=== PATIENT | female | born 1980 | race Caucasian/White ===

== ENCOUNTER → 2016-03-21 | Outpatient (CLI) | payer OTHER ==
[~2016-03-21] MED LIST: ONDA4TAB10 SL; PRENTAB26 PO
[2016-03-21 13:30] LABS: BASO % 0.4 %; BASO ABS # 0.03 K/uL (0-0.2); COMPLETE YES; EOS % 0.9 %; HEMATOCRIT 40.3 % (37-47); IG% 0.6 %; LYMPH % 19.1 %; LYMPH ABS # 1.62 K/uL (1.2-3.4); MEAN CORPUSCULAR HEMOGLOBIN 31.3 pg (25-34); MEAN CORPUSCULAR HGB CONC 34.7 g/dl (32-36); MEAN PLATELET VOLUME 10.7 fL (7.4-10.4); MONO % 6.7 %; NEUT % 72.3 %; PLATELET COUNT 265 K/uL (130-400); RED BLOOD COUNT 4.48 M/uL (4.2-5.4)
[2016-03-21 14:26] LABS: GTGD 50 Grams
== END | disposition home or self-care (01) ==
LOC: C.LAB 11:26
PROVIDERS: ATTEND Obstetrics & Gynecology
DX: Z34.81 Encounter for supervision of other normal pregnancy, first trimester (principal)

== ENCOUNTER 2016-04-16 08:45 | Emergency (ER) | payer OTHER ==
[~2016-04-16] VITALS: Ht 165.1 cm; Wt 65.6 kg
[2016-04-16 08:48] VITALS: TEMP 36.5; Ht 165.1 cm; Wt 65.6 kg
[2016-04-16] MEDS ORDERED: PRENTAB26 PO (09:07)
[2016-04-16] MEDS ORDERED: SODIUM CHLORIDE 0.9% 1000ML 1,000 ML IV STA (09:12)
[2016-04-16] MEDS ORDERED: ONDANSETRON INJ 2 MG/ML 2 ML VIAL IV STA (09:12)
--- NOTE | 2016-04-16 09:21 | EMERGENCY ROOM VISIT NOTE ---
History Report prepared by Scribe: Rajinder Hernandez Under the Supervision of: Dr. Tara Beck M.D. First contact with patient: 09:07 Chief Complaint: DIZZY Stated Complaint: LIGHTHEADED, DIZZY, V, FLU SYMPTOMS-21 WKS. PREG. Nursing Triage Summary: C/O of dizziness this AM. Feels like shes had a cold the past few days, right ear hurts and thought it was turning into a sinus infection. "My equilibrium is just off." 21 weeks . Healthy . History of Present Illness The patient is a 35 year old female who presents to the Emergency Room with complaints of recurrent dizziness since she woke up this morning. The patient has had nasal congestion and cold symptoms for the past four days, however her cough has resolved. She started to experience nausea & vomiting and also right ear pain yesterday. The patient has been unable to keep fluids down secondary to vomiting. The patient denies any fevers, headaches, chest pain, shortness of breath, diarrhea, urinary symptoms, vaginal discharge, or leg pain. The patient is 21 weeks . She can feel the fetus's movement. The patient has other children at home. Her daughter had cold symptoms similar to the patient's. Source of History: patient Onset: this morning Position: other (global) Quality: other (dizziness) Timing: other (recurrent) Associated Symptoms: + cough, + nausea, + vomiting, No SOB, No chest pain, No diarrhea, No fevers, No headache, No urinary symptoms Review of Systems See HPI for pertinent positives & negatives. A total of 10 systems reviewed and were otherwise negative. Past Medical & Surgical Medical Problems: (1) Allergic reaction (2) Tonsillitis Surgical Problems: (1) Hx of section Family History Cancer Diabetes mellitus Heart disease Hypertension Kidney disease Kidney stones Social History Smoking Status: Never Smoker Alcohol Use: none Marital Status: single Housing Status: lives with family Occupation Status: employed Current/Historical Medications Scheduled Multivit/Min/Iron/Fol Ac/Pren ( Vitamin), 1 TAB PO DAILY Ondasetron Odt (Zofran Odt), 4 MG SL Q6H Allergies Coded Allergies: Codeine (Verified Allergy, Mild, Facial itching., 04/16/16) Physical Exam Vital Signs Date Time Temp Pulse Resp B/P Pulse Ox O2 Delivery O2 Flow Rate FiO2 04/16/16 13:29 76 17 122/75 97 04/16/16 12:02 79 15 115/76 97 Room Air 04/16/16 11:21 80 18 121/77 98 04/16/16 09:45 72 114/82 04/16/16 09:42 78 20 115/74 93 118/77 95 114/82 04/16/16 08:58 87 04/16/16 08:48 36.5 99 18 117/66 96 Room Air Physical Exam Vital signs reviewed. General: Well-appearing female, in no significant distress. HEENT: No scleral icterus, PERRLA, neck supple. Atraumatic. Cardiovascular: Regular rate and rhythm, no extra sounds. Pulmonary: Clear to auscultation bilaterally, normal work of breathing. Abdomen: Soft, nontender, nondistended, positive bowel sounds. Palpable uterus in the mid abdomen. Musculoskeletal: Atraumatic, no peripheral edema. Neurologic: Patient awake alert and oriented x 3, full strength in all 4 extremities. Cranial nerves 2 through 12 grossly intact. Skin: Warm, dry, no rash Medical Decision & Procedures Laboratory Results 04/16/16 08:55 Red Blood Count 4.66, Mean Corpuscular Volume 90.3, Mean Corpuscular Hemoglobin 30.7, Mean Corpuscular Hemoglobin Concent 34.0, Mean Platelet Volume 10.5, Neutrophils (%) (Auto) 62.7, Lymphocytes (%) (Auto) 28.3, Monocytes (%) (Auto) 6.6, Eosinophils (%) (Auto) 1.3, Basophils (%) (Auto) 0.3, Neutrophils # (Auto) 6.21, Lymphocytes # (Auto) 2.80, Monocytes # (Auto) 0.65, Eosinophils # (Auto) 0.13, Basophils # (Auto) 0.03 04/16/16 08:55 Test 04/16/16 08:55 04/16/16 10:28 White Blood Count 9.90 K/uL (4.8-10.8) Red Blood Count 4.66 M/uL (4.2-5.4) Hemoglobin 14.3 g/dL (12.0-16.0) Hematocrit 42.1 % (37-47) Mean Corpuscular Volume 90.3 fL (80-100) Mean Corpuscular Hemoglobin 30.7 pg (25-34) Mean Corpuscular Hemoglobin Concent 34.0 g/dl (32-36) Platelet Count 268 K/uL (130-400) Mean Platelet Volume 10.5 fL (7.4-10.4) Neutrophils (%) (Auto) 62.7 % Lymphocytes (%) (Auto) 28.3 % Monocytes (%) (Auto) 6.6 % Eosinophils (%) (Auto) 1.3 % Basophils (%) (Auto) 0.3 % Neutrophils # (Auto) 6.21 K/uL (1.4-6.5) Lymphocytes # (Auto) 2.80 K/uL (1.2-3.4) Monocytes # (Auto) 0.65 K/uL (0.11-0.59) Eosinophils # (Auto) 0.13 K/uL (0-0.5) Basophils # (Auto) 0.03 K/uL (0-0.2) RDW Standard Deviation 46.9 fL (36.4-46.3) RDW Coefficient of Variation 14.4 % (11.5-14.5) Immature Granulocyte % (Auto) 0.8 % Immature Granulocyte # (Auto) 0.08 K/uL (0.00-0.02) Prothrombin Time 9.7 SECONDS (9.0-12.0) Prothromb Time International Ratio 0.9 (0.9-1.1) Anion Gap 12.0 mmol/L (3-11) Est Creatinine Clear Calc Drug Dose 78.8 ml/min Estimated GFR () 97.3 Estimated GFR (Non- 83.9 BUN/Creatinine Ratio 12.2 (10-20) Calcium Level 8.4 mg/dl (8.5-10.1) Magnesium Level 1.9 mg/dl (1.8-2.4) Total Bilirubin 0.2 mg/dl (0.2-1) Direct Bilirubin < 0.1 mg/dl (0-0.2) Aspartate Amino Transf (AST/SGOT) 21 U/L (15-37) Alanine Aminotransferase (ALT/SGPT) 24 U/L (12-78) Alkaline Phosphatase 59 U/L (45-117) Total Protein 7.3 gm/dl (6.4-8.2) Albumin 3.1 gm/dl (3.4-5.0) Urine Color YELLOW Urine Appearance CLEAR (CLEAR) Urine pH 7.0 (4.5-7.5) Urine Specific [place] 1.017 (1.000-1.030) Urine Protein NEG (NEG) Urine Glucose (UA) NEG (NEG) Urine Ketones NEG (NEG) Urine Occult Blood NEG (NEG) Urine Nitrite NEG (NEG) Urine Bilirubin NEG (NEG) Urine Urobilinogen NEG (NEG) Urine Leukocyte Esterase NEG (NEG) Laboratory results per my review. Medications Administered Medications (Trade) Dose Ordered Sig/Hoda Route Start Time Stop Time Status Last Admin Dose Admin Sodium Chloride (Nss 1000ml) 1,000 ml @ 999 mls/hr Q1H1M STAT IV 04/16/16 09:12 04/16/16 13:45 DC 04/16/16 09:45 999 MLS/HR Ondansetron HCl (Zofran Inj) 4 mg NOW STAT IV 04/16/16 09:12 04/16/16 09:15 DC 04/16/16 09:46 4 MG Ondansetron HCl (ZOFRAN ODT 4MG Home Pack) 1 homepack UD ONCE PO 04/16/16 13:30 04/16/16 13:45 DC 04/16/16 13:28 1 HOMEPACK ED Course 0912: Past medical records reviewed. The patient was evaluated in room B7. A complete history and physical examination was performed. 0912: Zofran 4 mg IV, NSS 1000 ml @ 999 mls/hr. 1320: Reassessed the patient. Discussed the findings with her. She verbalized understanding and agreement of the treatment plan. The patient is ready for discharge. 1330: Zofran Odt 4 mg PO home pack. Medical Decision Etiologies such as gastroenteritis, food borne illness, infections, appendicitis , diverticulitis, inflammatory bowel disease, obstruction, GI bleed, biliary pathology, , dehydration, as well as others were entertained. This patient was evaluated and appeared to be in no significant distress. IV access was obtained and laboratory work was drawn. Patient was hydrated with normal saline solution. Laboratory work is fairly unrevealing. Patient's vital signs have remained stable. She was feeling much improved after IV hydration and IV Zofran. Ultrasound reveals an intrauterine . Patient felt comfortable with the plan for discharge and was asked to follow-up with her DECK ENGINEER this week. She will return to the ER for worsening of symptoms or any medical concerns. Impression Primary Impression: Vomiting Additional Impressions: Near syncope Scribe Attestation The scribe's documentation has been prepared under my direction and personally reviewed by me in its entirety. I confirm that the note above accurately reflects all work, treatment, procedures, and medical decision making performed by me. Departure Information Dispostion Home / Self-Care Prescriptions Ondasetron Odt (ZOFRAN ODT) 4 Mg Tab 4 MG SL Q6H for Nausea, #10 TAB Prov: Tara Beck M.D. 04/16/16 Referrals Doe Cummings M.D. (PCP) Forms HOME CARE DOCUMENTATION FORM, IMPORTANT VISIT INFORMATION, Work Instructions Patient Instructions My [facility] Additional Instructions Diagnosis: Vomiting, , near syncope Drink plenty of clear fluids. Zofran 4 mg ODT every 6 hours as needed for nausea. Follow-up with your DECK ENGINEER this week for reevaluation if symptoms persist. Return to the ER for worsening of symptoms or any medical concerns. Problem Qualifiers Primary Impression: Vomiting Vomiting type: unspecified Vomiting Intractability: non-intractable Nausea presence: with nausea Qualified Codes: R11.2 - Nausea with vomiting, unspecified Additional Impressions: Weeks of gestation: 21 weeks Qualified Codes: Z3A.21 - 21 weeks gestation of
[2016-04-16 09:39] LABS: BASO % 0.3 %; BASO ABS # 0.03 K/uL (0-0.2); COMPLETE YES; EOS % 1.3 %; HEMATOCRIT 42.1 % (37-47); IG% 0.8 %; LYMPH % 28.3 %; MEAN CELL VOLUME 90.3 fL (80-100); MEAN CORPUSCULAR HEMOGLOBIN 30.7 pg (25-34); MEAN PLATELET VOLUME 10.5 fL (7.4-10.4); MONO % 6.6 %; NEUT % 62.7 %; PLATELET COUNT 268 K/uL (130-400); RED BLOOD COUNT 4.66 M/uL (4.2-5.4)
[2016-04-16 09:49] LABS: ALKALINE PHOSPHATASE 59 U/L (45-117); ALT/SGPT 24 U/L (12-78); AST/SGOT 21 U/L (15-37)
[2016-04-16 09:52] LABS: INR 0.9 (0.9-1.1); PROTHROMBIN TIME (PATIENT) 9.7 SECONDS (9.0-12.0)
[2016-04-16 10:24] LABS: BUN/CREATININE RATIO 12.2 (10-20); CALCIUM 8.4 mg/dl (8.5-10.1); CREATININE 0.88 mg/dl (0.60-1.20); MAGNESIUM 1.9 mg/dl (1.8-2.4)
[2016-04-16 10:48] LABS: URINE APPEARANCE CLEAR (CLEAR); URINE BILIRUBIN NEG (NEG); URINE COLOR YELLOW; URINE NITRITE NEG (NEG); URINE SPECIFIC GRAVITY 1.017 (1.000-1.030); UROBILINOGEN NEG (NEG); ZZUR CULT IF INDIC CLEAN CATCH NO
[2016-04-16 10:51] LABS: MANUAL MICROSCOPIC REQUIRED? NO; REVIEW REQ? NO
[2016-04-16] MEDS ORDERED: ONDA4TAB10 SL (13:17)
[2016-04-16 13:29] VITALS: BP 122/75; PULSE 76; O2SAT 97
[2016-04-16] MEDS ORDERED: ONDANSETRON HOME PACK 4MG OD TAB PO ONE (13:30)
== END 2016-04-16 13:29 | disposition home or self-care (01) ==
LOC: C.EDB 08:47
DX: O26.92 Pregnancy related conditions, unspecified, second trimester (principal); Z3A.21 21 weeks gestation of pregnancy; R55 Syncope and collapse; R11.10 Vomiting, unspecified; Z88.5 Allergy status to narcotic agent; Z80.9 Family history of malignant neoplasm, unspecified; Z83.3 Family history of diabetes mellitus; Z82.49 Family history of ischemic heart disease and other diseases of the circulatory system; Z84.1 Family history of disorders of kidney and ureter

== ENCOUNTER → 2016-06-12 | Outpatient (CLI) | payer OTHER ==
[2016-06-13 15:10] LABS: URINE APPEARANCE CLEAR (CLEAR); URINE BILIRUBIN NEG (NEG); URINE COLOR YELLOW; URINE NITRITE NEG (NEG); URINE PH 8.5 (4.5-7.5); URINE SPECIFIC GRAVITY 1.013 (1.000-1.030); UROBILINOGEN NEG (NEG)
[2016-06-13 15:18] LABS: MANUAL MICROSCOPIC REQUIRED? NO; REVIEW REQ? NO
== END | disposition home or self-care (01) ==
LOC: C.LABSPEC 14:55
PROVIDERS: ATTEND Obstetrics & Gynecology
DX: O26.893 Other specified pregnancy related conditions, third trimester (principal); R30.0 Dysuria

== ENCOUNTER → 2016-07-31 | Outpatient (CLI) | payer OTHER | END | disposition home or self-care (01) | LOC: C.LABSPEC 15:13 | PROVIDERS: ATTEND Obstetrics & Gynecology | DX: Z34.83 Encounter for supervision of other normal pregnancy, third trimester (principal) ==

== ENCOUNTER 2016-08-20 06:52 | Inpatient (IN) | payer OTHER ==
--- NOTE | 2016-08-07 19:55 | HISTORY & PHYSICAL EXAMINATION ---
DATE OF ADMISSION: 08/20/2016 CHIEF COMPLAINT: Two previous sections, intrauterine at 39 weeks gestation. HISTORY OF PRESENT ILLNESS: The patient is a 36-year-old 4, para 2. She has had 1 first trimester AB. She has had 2 previous sections. She was well dated with a first trimester ultrasound. Her due date 08/27/2016. Her obstetrical history is as follows: In 1999 she had a male, 7 pounds 13 ounces, at 40 weeks gestation after arrest of labor at 6 cm. She was told at that time the was in OP position. She attempted in 2009 and had another , a female of 6 pounds 13 ounces, another arrest at 6 cm position. Presently being scheduled for a repeat low segment section. The patient did not have any genetic testing. PAST MEDICAL HISTORY: ALLERGIES: SHE IS ALLERGIC TO CODEINE WHICH CAUSES SWELLING. She has a boy and girl in good health. MEDICAL HISTORY: No history of rheumatic fever, heart disease, heart murmur, diabetes, tuberculosis. PAST SURGICAL HISTORY: She has had 2 previous C-sections. SOCIAL HISTORY: No smoking. No alcohol intake. Works at [employer]. FAMILY HISTORY: Mom is 55 in good health, father 58 in good health, 1 brother and 2 half sisters in good health. REVIEW OF SYSTEMS: HEAD: No symptoms of frequent or severe headaches. EYES: No symptoms of blurred vision, double vision. EARS: No symptoms of frequent ear infections, difficulty hearing. NOSE: No symptoms of frequent nosebleeds, difficulty breathing through her nose. THROAT: No symptoms of frequent or severe sore throats, difficulty swallowing. RESPIRATORY SYSTEM: No history of asthma, chest pain, shortness of breath. PHYSICAL EXAMINATION: GENERAL: Well-developed, well-nourished 36-year-old white female, alert, oriented x3 and cooperative in no acute distress, appears her stated age. EYES: Conjunctivae are pink. Sclerae white, no evidence of jaundice. EARS: Had normal light reflex bilaterally. NOSE: Had normal mucosa. Septum is midline. There were no polyps. THROAT: No erythema or evidence of infection. Teeth are in good state of repair. HEAD: Was normocephalic, normal distribution of hair. NECK: Supple. Trachea midline. Thyroid is not enlarged. There is no adenopathy appreciated. Both carotids are of good intensity. CHEST: Clear to auscultation and percussion. no rales or rhonchi appreciated. HEART: Regular rhythm. S1 and S2 are normal. BREASTS: Normal. ABDOMEN: Soft and nontender. There is a well-healed Pfannenstiel scar. Term size fetus, vertex presentation. MUSCULOSKELETAL: Revealed no calf tenderness. PELVIC: Vertex presentation. Cervix posterior 1 cm. MUSCULOSKELETAL: No calf tenderness. IMPRESSIONS OF THIS CASE: Two prior sections and intrauterine , 39 weeks gestation. MTDD
[2016-08-14 12:54] VITALS: BMI 28.0
--- NOTE | 2016-08-14 13:11 | PAT Medication Instructions ---
Service Date August 14, 2016. Current Home Medication List Multivit/Min/Iron/Fol Ac/Pren ( Vitamin), 1 TAB PO DAILY Medication Instructions For Your Scheduled Surgery - Hold the following medications the morning of surgery: Multivit/Min/Iron/Fol Ac/Pren ( Vitamin), 1 TAB PO DAILY If you have any questions please call us at [phone] or [phone] or [phone]
[2016-08-14 13:54] LABS: BUN/CREATININE RATIO 10.1 (10-20); CREATININE 0.85 mg/dl (0.60-1.20); POTASSIUM 3.7 mmol/L (3.5-5.1)
[2016-08-14 13:59] LABS: BASO % 0.4 %; BASO ABS # 0.04 K/uL (0-0.2); COMPLETE YES; HEMATOCRIT 34.4 % (37-47); IG% 1.2 %; LYMPH % 20.8 %; LYMPH ABS # 1.96 K/uL (1.2-3.4); MEAN CELL VOLUME 89.1 fL (80-100); MEAN CORPUSCULAR HEMOGLOBIN 30.8 pg (25-34); MEAN CORPUSCULAR HGB CONC 34.6 g/dl (32-36); MEAN PLATELET VOLUME 10.6 fL (7.4-10.4); MONO % 7.6 %; PLATELET COUNT 240 K/uL (130-400); RED BLOOD COUNT 3.86 M/uL (4.2-5.4); WHITE BLOOD COUNT 9.42 K/uL (4.8-10.8)
[2016-08-14 14:07] LABS: INR 0.9 (0.9-1.1); PARTIAL THROMBOPLASTIN RATIO 0.9; PROTHROMBIN TIME (PATIENT) 9.7 SECONDS (9.0-12.0)
[2016-08-20] VITALS (13 sets, daily range): BP systolic 105–128; BP diastolic 60–78; PULSE 75–84; TEMP 36.3–36.8; O2SAT 18–99; Ht 165.1 cm; Wt 76.5 kg
[~2016-08-20] VITALS: Ht 165.1 cm; Wt 76.5 kg
[~2016-08-20 06:52] MED LIST changes: +CEFOXITIN IV 2000 MG in DEXTROSE 5% 50ML IV SCH; +CITRIC ACID/SODIUM CITRATE 15 ML UDC PO SCH; +LACTATED RINGER'S 1000ML 1,000 ML IV SCH; -ONDA4TAB10 SL
[2016-08-20] MEDS ORDERED: LACTATED RINGER'S 1000ML 1,000 ML IV SCH (08:27)
[2016-08-20] MEDS ORDERED: CITRIC ACID/SODIUM CITRATE 15 ML UDC PO ONE (08:30)
--- NOTE | 2016-08-20 08:48 | History & Physical Bridge Note ---
H&P Re-Evaluation Bridge Note: I have examined the patient, reviewed the History & Physical and in the interval since the performance of the History & Physical I have noted the following changes of clinical significance: No changes noted
[2016-08-20] MEDS ORDERED: OXYTOCIN INJ 10 UNITS/ML VIAL ONE ×2 (08:49→09:28)
[2016-08-20] MEDS ORDERED: ONDANSETRON INJ 2 MG/ML 2 ML VIAL ONE (08:49)
[2016-08-20] MEDS ORDERED: FENTANYL CITRATE INJ 50 MCG/1 ML 2 ML VIAL ONE (08:49)
[2016-08-20] MEDS ORDERED: EpHEDrine SULFATE INJ 50 MG/ML AMP ONE (08:49)
[2016-08-20] MEDS ORDERED: MoRPHine SULFATE PF 1 MG/ML 10 ML AMP/VIAL ONE (08:49)
[2016-08-20] MEDS ORDERED: OXYTOCIN INJ 10 UNITS/ML VIAL INJ ONE (10:45)
[2016-08-20] MEDS ORDERED: HYDROCORTISONE ACETATE 25 MG SUPP PR PRN (11:15)
[2016-08-20] MEDS ORDERED: DIPHTHERIA/TETANUS/PERTUSSIS 0.5 ML SYR/VIAL IM. ONE (11:15)
[2016-08-20] MEDS ORDERED: SUPERCREAM 0.870 % 15GM JAR EXT PRN (11:15)
[2016-08-20] MEDS ORDERED: BENZOCAINE 20% AER SPR 82.5 GM CAN EXT PRN (11:15)
[2016-08-20] MEDS ORDERED: SENNA 8.6 MG TAB PO PRN (11:15)
[2016-08-20] MEDS ORDERED: MAGNESIUM HYDROXIDE SUSP 30 ML UDC PO PRN (11:15)
[2016-08-20] MEDS ORDERED: LANOLIN OINT EXT PRN ×2 (11:15)
[2016-08-20] MEDS ORDERED: NALOXONE HCL INJ 0.08 MG in SYRINGE 1.8 ML IV PRN (11:24)
[2016-08-20] MEDS ORDERED: LACTATED RINGER'S 1000ML 500 ML IV PRN (11:24)
[2016-08-20] MEDS ORDERED: SODIUM CHLORIDE 0.9% 1000ML 1,000 ML IV PRN (11:24)
--- NOTE | 2016-08-20 11:28 | Anesthesiology Progress Note ---
Anesthesia Post Op Note Date & Time Aug 20, 2016 at 11:27 Notes Mental Status: alert / awake / arousable, participated in evaluation Pt Amnestic to Procedure: No (recall as expected) Nausea / Vomiting: adequately controlled Pain: adequately controlled Airway Patency, RR, SpO2: stable & adequate BP & HR: stable & adequate Hydration State: stable & adequate Neuraxial Anesthesia: was administered, sensory block is resolving Anesthetic Complications: no major complications apparent Pt had C/S under spinal. Her anesthetic course was unremarkable. Post-op vitals : BP 135/83, HR 91, RR 16, SpO2 98% on RA, T 36.3.
[2016-08-20] MEDS ORDERED: MoRPHine SULFATE PF 1 MG/ML 10 ML AMP/VIAL EPI PRN (11:30)
[2016-08-20] MEDS ORDERED: NALOXONE HCL 0.4 MG/1 ML VIAL/CARP IV PRN (11:30)
[2016-08-20] MEDS ORDERED: PROMETHAZINE HCL INJ 25 MG in SODIUM CHLORIDE 0.9% 50ML 50 ML IV PRN (11:30)
[2016-08-20] MEDS ORDERED: ONDANSETRON INJ 2 MG/ML 2 ML VIAL IV PRN (11:30)
[2016-08-20] MEDS ORDERED: NALBUPHINE HCL INJ 10 MG/ML AMP IV PRN (11:30)
[2016-08-20] MEDS ORDERED: NO NARCOTICS OR SEDATIVES SCH (11:30)
[2016-08-20] MEDS ORDERED: EpHEDrine SULFATE INJ 50 MG/ML AMP IV PRN (11:30)
[2016-08-20] MEDS ORDERED: MEPERIDINE HCL 25 MG/ML CARP IV PRN (11:30)
[2016-08-20] MEDS ORDERED: DiphenhydrAMINE HCL 50 MG/ML VIAL IV PRN (11:30)
[2016-08-20] MEDS: OXYTOCIN INJ 20 UNITS in LACTATED RINGER'S 1000ML 1,000 ML IV SCH ×2 (11:50→19:58)
--- NOTE | 2016-08-20 12:04 | OPERATIVE REPORT ---
DATE OF OPERATION: 08/20/2016 PROCEDURE: Repeat low segment section. INDICATIONS FOR SURGERY: Two previous secondary to cephalopelvic disproportion. POSTOPERATIVE DIAGNOSIS: Same, delivered live male . SURGEON: Dr. Cummings. CUSTOMER SERVICE CLERK: Nurse. ESTIMATED BLOOD LOSS: 600 mL ANESTHESIA: Spinal. OPERATIVE FINDINGS AND PROCEDURE: The patient was brought to the OR table, correctly identified by armband and conversation. Spinal anesthesia was administered. Compression stockings were applied. Escobar catheter was inserted aseptically in the bladder, connected to gravity drainage. Lower abdomen was painted with an alcohol-based sterilizing solution, draped in usual sterile fashion. Adequacy of the anesthesia was checked. A Pfannenstiel incision was made through a previous scar, it was carried down to the anterior fascia by blunt and sharp dissection. Hemostasis was secured by electrocauterization. Fascia was incised transversely the underlying muscles which were in the midline. Peritoneum was carefully raised and entered. Bladder blade was placed in the uterine cavity. head was palpated through the lower uterine segment. Incision was made above the peritoneum. Bladder was undermined bluntly and pushed out of the operative field. Lower uterine segment was scored with a knife and then entered bluntly with the scissors. Clear amniotic fluid was seen at this time. Vectis retractor was applied to the head, and with fundal pressure, infant was delivered and was suctioned through the mouth and the nose. Body was delivered without difficulty. Cord was clamped and cut. Cord blood was taken. The infant was attended to by the [employer] publisher business, Dr. Montoya who scrubbed and was present at the time of delivery. Placenta was then removed manually. Uterus was cleansed with a clean sponge while in the abdominal cavity. One attempt was made to remove the uterus through the abdominal incision, it was not successful, so we proceeded with surgery with the uterus in the abdomen. Identified the myometrial defect, approximated the muscular defect with a continuous interlocking suture of chromic, then did a layer over this with a continuous interlocking suture of heavy Vicryl. Hemostasis was excellent. Peritoneal edges were restored with 3-0 chromic. Then, a careful anatomical approximation of the anterior abdominal wall was performed. Peritoneum was closed with a mattress suture of chromic catgut. Recti muscles were approximated with interrupted [id number] suture of chromic catgut. The fascia was closed with continuous interlocking suture of Vicryl on each side. Subcu was closed with continuous plain and skin edges were approximated with staple clips. I attest to the content of the Intraoperative Record and any orders documented therein. Any exception s are noted below.
[2016-08-20] MEDS: KETOROLAC TROMETHAMINE 30 MG/ML VIAL IV. PRN ×2 (12:33→18:35)
[2016-08-20] MEDS: MoRPHine SULFATE 2 MG/ML CARP IV PRN ×3 (13:00→23:16)
[2016-08-20] MEDS: SIMETHICONE 80 MG CHEW PO SCH ×3 (13:00→19:47)
[2016-08-20] MEDS: DOCUSATE SODIUM 100 MG CAP PO SCH (19:47)
[2016-08-20 21:03] LABS: URINE APPEARANCE CLEAR (CLEAR); URINE BILIRUBIN NEG (NEG); URINE COLOR YELLOW; URINE NITRITE NEG (NEG); UROBILINOGEN NEG (NEG); ZZUR CULT IF INDIC CLEAN CATCH NO
[2016-08-20 21:12] LABS: MANUAL MICROSCOPIC REQUIRED? YES; REVIEW REQ? NO
[2016-08-20 21:19] LABS: URINE BACTERIA NEG (NEG)
[2016-08-21] VITALS (7 sets, daily range): BP systolic 101–113; BP diastolic 65–72; PULSE 67–90; TEMP 36.6–36.7; O2SAT 94–99
[2016-08-21] MEDS: KETOROLAC TROMETHAMINE 30 MG/ML VIAL IV. PRN (00:35)
[2016-08-21] MEDS ORDERED: DiphenhydrAMINE HCL 50 MG/ML VIAL IV PRN (04:00)
[2016-08-21] MEDS ORDERED: ONDANSETRON INJ 2 MG/ML 2 ML VIAL IV PRN (04:00)
[2016-08-21] MEDS ORDERED: ZOLPIDEM TARTRATE 5 MG TAB PO PRN (04:00)
[2016-08-21] MEDS ORDERED: MEPERIDINE HCL 50 MG/ML CARP IV PRN ×2 (04:00)
[2016-08-21] MEDS ORDERED: DC INTRASPINAL MORPHINE ONE (04:00)
[2016-08-21] MEDS ORDERED: KETOROLAC TROMETHAMINE 30 MG/ML VIAL IV. PRN (04:00)
[2016-08-21] MEDS ORDERED: CEFOXITIN IV 2,000 MG in DEXTROSE 5% 50ML 50 ML IV SCH (06:00)
[2016-08-21 06:11] LABS: BASO % 0.2 %; BASO ABS # 0.02 K/uL (0-0.2); COMPLETE YES; EOS % 1.6 %; IG% 0.4 %; LYMPH % 16.5 %; LYMPH ABS # 1.81 K/uL (1.2-3.4); MEAN CELL VOLUME 90.9 fL (80-100); MEAN CORPUSCULAR HEMOGLOBIN 30.1 pg (25-34); MEAN CORPUSCULAR HGB CONC 33.1 g/dl (32-36); MEAN PLATELET VOLUME 10.2 fL (7.4-10.4); MONO % 5.9 %; NEUT % 75.4 %; PLATELET COUNT 184 K/uL (130-400); RED BLOOD COUNT 3.52 M/uL (4.2-5.4); WHITE BLOOD COUNT 10.99 K/uL (4.8-10.8)
[2016-08-21] MEDS: FERROUS SULFATE 325 MG TAB PO SCH (07:30)
[2016-08-21] MEDS: DOCUSATE SODIUM 100 MG CAP PO SCH ×2 (07:30→20:15)
[2016-08-21] MEDS: PRENATAL VITAMIN TAB PO SCH (07:30)
[2016-08-21] MEDS: SIMETHICONE 80 MG CHEW PO SCH ×3 (07:30→20:15)
[2016-08-21] MEDS ORDERED: NURSING VERBAL MED ORDER ONE (08:00)
[2016-08-21] MEDS: OXYCODONE/ACETAMINOPHEN 5-325 TAB PO PRN ×4 (08:29→20:16)
--- NOTE | 2016-08-21 08:50 | Progress Note ---
Subjective Aug 21, 2016. Subjective conversation w/ patient Ambulation: limited ambulation Voiding: no voiding problems Passing Gas: Yes Diet Tolerance: Regular Diet Lochia: Small Feeding Type: Breast Feeding Review of Systems Constitutional: + fever Objective Vital Signs Date Time Temp Pulse Resp B/P (MAP) Pulse Ox O2 Delivery O2 Flow Rate FiO2 08/21/16 04:00 18 98 08/21/16 04:00 36.6 86 18 113/72 (86) 98 Room Air 08/21/16 03:00 16 98 08/21/16 02:00 18 99 08/21/16 01:00 16 98 08/20/16 23:55 36.8 83 18 115/72 (86) 99 Room Air 08/20/16 23:55 18 99 08/20/16 23:55 99 Room Air 08/20/16 22:30 20 98 08/20/16 21:30 18 98 08/20/16 20:30 18 99 08/20/16 19:35 18 98 08/20/16 19:35 36.7 75 18 113/67 (82) 98 Room Air 08/20/16 18:30 18 96 08/20/16 17:30 18 98 08/20/16 16:30 18 96 08/20/16 15:42 36.5 84 18 128/78 (95) 99 Room Air 08/20/16 15:30 99 18 08/20/16 15:15 99 Room Air 08/20/16 14:30 20 99 08/20/16 14:30 36.3 79 18 105/60 (75) 99 Room Air 08/20/16 14:00 99 Room Air Physical Exam General Appearance: WELL-APPEARING Respiratory/Chest: lungs clear Abdomen: normal bowel sounds, non tender Fundus: Firm, Non-Tender Incision Description: Clean, Dry & Intact Extremities: no pedal edema, no calf tenderness Laboratory Results Last 24 Hours Test 08/20/16 19:35 08/21/16 05:59 Urine Color YELLOW Urine Appearance CLEAR Urine pH 7.0 Urine Specific [place] 1.010 Urine Protein NEG Urine Glucose (UA) NEG Urine Ketones NEG Urine Occult Blood NEG Urine Nitrite NEG Urine Bilirubin NEG Urine Urobilinogen NEG Urine Leukocyte Esterase TRACE Urine WBC (Auto) /hpf Urine RBC (Auto) /hpf Urine Hyaline Casts (Auto) /lpf Urine Epithelial Cells (Auto) /lpf Urine Bacteria (Auto) Urine RBC 5-10 /hpf Urine WBC 1-5 /hpf Urine Epithelial Cells 0-5 /lpf Urine Bacteria NEG White Blood Count 10.99 K/uL Red Blood Count 3.52 M/uL Hemoglobin 10.6 g/dL Hematocrit 32.0 % Mean Corpuscular Volume 90.9 fL Mean Corpuscular Hemoglobin 30.1 pg Mean Corpuscular Hemoglobin Concent 33.1 g/dl Platelet Count 184 K/uL Mean Platelet Volume 10.2 fL Neutrophils (%) (Auto) 75.4 % Lymphocytes (%) (Auto) 16.5 % Monocytes (%) (Auto) 5.9 % Eosinophils (%) (Auto) 1.6 % Basophils (%) (Auto) 0.2 % Neutrophils # (Auto) 8.29 K/uL Lymphocytes # (Auto) 1.81 K/uL Monocytes # (Auto) 0.65 K/uL Eosinophils # (Auto) 0.18 K/uL Basophils # (Auto) 0.02 K/uL RDW Standard Deviation 45.5 fL RDW Coefficient of Variation 13.8 % Immature Granulocyte % (Auto) 0.4 % Immature Granulocyte # (Auto) 0.04 K/uL Assessment and Plan Problem List Medical Problems: (1) Near syncope Status: Acute (2) Vomiting Status: Acute Post-Op Day#: 1
[2016-08-21] MEDS: IBUPROFEN 600 MG TAB PO PRN ×3 (12:22→20:15)
[2016-08-21] MEDS ORDERED: BISACODYL 5 MG TABEC PO ONE (22:00)
[2016-08-22] MEDS: OXYCODONE/ACETAMINOPHEN 5-325 TAB PO PRN ×4 (00:38→12:18)
[2016-08-22] MEDS: SIMETHICONE 80 MG CHEW PO SCH ×2 (07:10→12:24)
[2016-08-22] MEDS: IBUPROFEN 600 MG TAB PO PRN ×2 (07:12→12:11)
--- NOTE | 2016-08-22 08:51 | Progress Note ---
Subjective Aug 22, 2016. Subjective conversation w/ patient Ambulation: ambulating normally Voiding: no voiding problems Passing Gas: Yes Diet Tolerance: Regular Diet Lochia: Small Feeding Type: Breast Feeding Review of Systems Constitutional: + fever Objective Vital Signs Date Time Temp Pulse Resp B/P (MAP) Pulse Ox O2 Delivery O2 Flow Rate FiO2 08/21/16 23:25 36.7 67 16 102/65 (77) Room Air 08/21/16 23:25 Room Air 08/21/16 16:00 Room Air 08/21/16 15:10 36.7 90 18 109/67 (81) 96 Room Air Physical Exam General Appearance: WELL-APPEARING Respiratory/Chest: lungs clear Abdomen: normal bowel sounds Fundus: Firm, Non-Tender Incision Description: Clean, Dry & Intact Extremities: no pedal edema, no calf tenderness Assessment and Plan Problem List Medical Problems: (1) Near syncope Status: Acute (2) Vomiting Status: Acute Post-Op Day#: 2
--- NOTE | 2016-08-22 08:53 | Discharge Instructions ---
Discharge Instructions Date of Service Aug 22, 2016. Admission Reason for Admission: Term ; Previous Section Discharge Discharge Diagnosis / Problem: repeat cesareansection Discharge Goals Goal(s): Routine recovery after Activity Recommendations Activity Limitations: as noted below ACTIVITY RECOMMENDATIONS: * Gradual return to full activity over the next 2-3 weeks. * No lifting - nothing heavier than baby over the next 2-3 weeks. * Do not engage in vigorous exercise, sexual activity or sports for 6 weeks. * Do not drive or operate any motorized equipment for 14 days. * You may shower/bathe daily. DIET: Resume Previous Diet If Breast-feeding: * Increase caloric intake by 500 calories, eat 3 well balanced meals, 2 high protein snacks a day and drink 6-8 8oz. glasses of fluid per day. BREAST CARE: If you are not breast feeding: * Wear a supportive bra 24 hours a day for one to two weeks. * Avoid stimulating your breasts and nipples as much as possible during the first few weeks after delivery. * When taking a shower, have the warm water hit your back, not breasts. * When your breasts feel full, apply ice packs. Usually three to four times a day helps ease the discomfort. * Take a mild pain medication (Tylenol / Motrin) when you are uncomfortable. If breast feeding: * Use breast milk to lubricate nipples. Lansinoh cream may be used for sore nipples. You do not need to remove cream prior to breast feeding. If using a different brand of cream, check the label for directions regarding removal of cream prior to nursing. * Wear a supportive bra. * If having problems with breasts or breast feeding, call a animal nutrition consultant or your health care provider. VITAMINS: * One tablet daily. Continue taking while or until you have your check up in 6 weeks. SPECIAL CARE INSTRUCTIONS: * Vaginal rest (no tampons, douching, intercourse) until after doctor's visit. * control as discussed with doctor. * Verbalizes understanding of car seat law as reviewed with patient by nursing. * Car Seat hand-out given and reviewed with patient by nursing. * Shaken baby information reviewed with patient by nursing. Call you doctor if: * Heavy bleeding (saturating a pad an hour) or passing clots the size of your fist. Bleeding has a foul smelling odor. * A fever greater than 100.4 degrees F (38 degrees C) on two occasions four hours apart and/or chills. * Unusual pain in the pelvic or vaginal areas. Pain should improve each day . * Call the doctor for any increased redness, drainage or swelling around the incision and any pain unrelieved by prescribed pain medication. * Signs and symptoms of phlebitis(possible blood clots forming in the veins): leg pain, warm, red or swollen area on leg. * "Baby Blues" lasting longer than two weeks. If you have any questions or concerns, call your health care practitioner at [phone]. FOLLOW-UP VISIT: Follow-up visit for examination in 6 weeks. Incision check (staple removal) in 1 week. Please call office at [phone] if not already scheduled. . Instructions / Follow-Up Instructions / Follow-Up ACTIVITY RECOMMENDATIONS: * Gradual return to full activity over the next 2-3 weeks. * No lifting - nothing heavier than baby over the next 2-3 weeks. * Do not engage in vigorous exercise, sexual activity or sports for 6 weeks. * Do not drive or operate any motorized equipment for 14 days. * You may shower/bathe daily. DIET: Resume Previous Diet If Breast-feeding: * Increase caloric intake by 500 calories, eat 3 well balanced meals, 2 high protein snacks a day and drink 6-8 8oz. glasses of fluid per day. BREAST CARE: If you are not breast feeding: * Wear a supportive bra 24 hours a day for one to two weeks. * Avoid stimulating your breasts and nipples as much as possible during the first few weeks after delivery. * When taking a shower, have the warm water hit your back, not breasts. * When your breasts feel full, apply ice packs. Usually three to four times a day helps ease the discomfort. * Take a mild pain medication (Tylenol / Motrin) when you are uncomfortable. If breast feeding: * Use breast milk to lubricate nipples. Lansinoh cream may be used for sore nipples. You do not need to remove cream prior to breast feeding. If using a different brand of cream, check the label for directions regarding removal of cream prior to nursing. * Wear a supportive bra. * If having problems with breasts or breast feeding, call a animal nutrition consultant or your health care provider. VITAMINS: * One tablet daily. Continue taking while or until you have your check up in 6 weeks. SPECIAL CARE INSTRUCTIONS: * Vaginal rest (no tampons, douching, intercourse) until after doctor's visit. * control as discussed with doctor. * Verbalizes understanding of car seat law as reviewed with patient by nursing. * Car Seat hand-out given and reviewed with patient by nursing. * Shaken baby information reviewed with patient by nursing. Call you doctor if: * Heavy bleeding (saturating a pad an hour) or passing clots the size of your fist. Bleeding has a foul smelling odor. * A fever greater than 100.4 degrees F (38 degrees C) on two occasions four hours apart and/or chills. * Unusual pain in the pelvic or vaginal areas. Pain should improve each day . * Call the doctor for any increased redness, drainage or swelling around the incision and any pain unrelieved by prescribed pain medication. * Signs and symptoms of phlebitis(possible blood clots forming in the veins): leg pain, warm, red or swollen area on leg. * "Baby Blues" lasting longer than two weeks. If you have any questions or concerns, call your health care practitioner at [phone]. FOLLOW-UP VISIT: Follow-up visit for examination in 6 weeks. Incision check (staple removal) in 1 week. Please call office at [phone] if not already scheduled. Current Hospital Diet Patient's current hospital diet: Regular OB Diet Discharge Diet Recommended Diet: Regular Diet Procedures Procedures Performed: Repeat caesarean section. Low uterine transverse incision. Delivery of live male child at 1015am Pending Studies Studies pending at discharge: no Medical Emergencies . Who to Call and When: Medical Emergencies: If at any time you feel your situation is an emergency, please call 911 immediately. . Non-Emergent Contact Non-Emergency issues call your: Sort Line Call Non-Emergent contact if: temperature is above 100.5 . . "Provider Documentation" section prepared by Doe Cummings. . VTE Core Measure Inpt VTE Proph given/why not?: Treatment not indicated
[2016-08-22] MEDS: PRENATAL VITAMIN TAB PO SCH (08:55)
[2016-08-22] MEDS: DOCUSATE SODIUM 100 MG CAP PO SCH (08:55)
[2016-08-22] MEDS: FERROUS SULFATE 325 MG TAB PO SCH (08:55)
[2016-08-22 09:00] VITALS: BP 114/70; PULSE 87; TEMP 36.5
--- NOTE | 2016-08-22 09:05 | DISCHARGE SUMMARY ---
DATE OF DISCHARGE: 08/22/2016. Mrs. Strickland is a 2, para 3. She has had 1 first trimester spontaneous AB. She has had 3 sections including the present admission. She had a first for cephalopelvic disproportion, second one was a failed and the final one was an elective repeat. She was admitted at 39 weeks and received prophylactic antibiotics and had a repeat low segment section. Did very well postoperatively, remained afebrile. Bowel sounds returned within 24 hours. Her preoperative hemoglobin was 11.9, hematocrit 34.4. Postoperatively, hemoglobin 10.6, hematocrit 32.0. On the second postoperative day her pain was well controlled with a combination of Percocet and Motrin. She was ambulating well, eating well. She requested early discharge. She was given the usual instructions to call if she had a temperature over 100 or any heavy bleeding, to continue to take her vitamins and return the following week for removal of the eron.
[2016-08-22] MEDS ORDERED: BISACODYL 10 MG SUPP PR PRN (11:15)
[2016-08-22 15:50] VITALS: BP 134/81; PULSE 80; TEMP 36.8; O2SAT 97
== END 2016-08-22 17:00 | disposition home or self-care (01) | DRG 766 ==
LOC: C.LD 06:52 → C.OBG 14:35 → EDSTATUS 08-22 16:10
PROVIDERS: ADMIT Obstetrics & Gynecology; ATTEND Obstetrics & Gynecology
PROC: 10D00Z1 Extraction of Products of Conception, Low, Open Approach (ICD-10-PCS; principal; 2016-08-20 09:00)
DX: O34.211 Maternal care for low transverse scar from previous cesarean delivery (principal); Z37.0 Single live birth; O26.893 Other specified pregnancy related conditions, third trimester; N85.8 Other specified noninflammatory disorders of uterus; Z3A.39 39 weeks gestation of pregnancy

== ENCOUNTER → 2016-10-02 | Outpatient (CLI) | payer OTHER ==
[~2016-10-02] MED LIST changes: -CEFOXITIN IV 2000 MG in DEXTROSE 5% 50ML IV SCH; -CITRIC ACID/SODIUM CITRATE 15 ML UDC PO SCH; -LACTATED RINGER'S 1000ML 1,000 ML IV SCH
== END | disposition home or self-care (01) ==
LOC: C.PAPS 15:04
PROVIDERS: ATTEND Obstetrics & Gynecology
DX: Z39.2 Encounter for routine postpartum follow-up (principal)

== ENCOUNTER 2018-05-04 00:20 | Inpatient (IN) ==
[2018-05-04] MEDS ORDERED: KETOROLAC TROMETHAMINE 15 MG/ML VIAL IV STA (00:29)
[2018-05-04] MEDS ORDERED: ONDANSETRON INJ 2 MG/ML 2 ML VIAL IV STA (00:29)
[2018-05-04] MEDS ORDERED: SODIUM CHLORIDE 0.9% 1000ML 1,000 ML IV SCH (00:30)
[2018-05-04] MEDS: MoRPHine SULFATE 4 MG/ML 1 ML CARP\\VIAL IV PRN ×2 (00:42→02:34)
[2018-05-04 00:47] LABS: Basophils # (auto) 0.06 K/uL (0-0.2); Basophils % (auto) 0.6 %; Eosinophils # (auto) 0.15 K/uL (0-0.5); Eosinophils % (auto) 1.5 %; Hemoglobin 15.7 g/dL (12.0-16.0); Immature Granulocytes # (auto) 0.02 K/uL (0.00-0.02); Immature Granulocytes % (auto) 0.2 %; Lymphocytes # (auto) 3.53 K/uL (1.2-3.4); Lymphocytes % (auto) 35.4 %; Mean Corpuscular Hgb Conc 34.1 g/dL (32-36); Mean Corpuscular Volume 91.3 fL (80-100); Mean Platelet Volume 10.1 fL (7.4-10.4); Monocytes # (auto) 0.72 K/uL (0.11-0.59); Monocytes % (auto) 7.2 %; Neutrophils # (auto) 5.48 K/uL (1.4-6.5); Neutrophils % (auto) 55.1 %; Platelet Count 379 K/uL (130-400); RDW Coefficient of Variation 13.4 % (11.5-14.5); RDW Standard Deviation 44.3 fL (36.4-46.3); Red Blood Count 5.04 M/uL (4.2-5.4); White Blood Count 9.96 K/uL (4.8-10.8)
[2018-05-04 01:04] LABS: Albumin Level 3.8 gm/dl (3.4-5.0); BUN Creatinine Ratio 11.4 (10-20); Calcium 8.1 mg/dl (8.5-10.1); Creatinine Clr Calc Pharmacy 50.7 ml/min; Est GFR (African American) 58.2; Est GFR (Non-African American) 50.2; Potassium 3.7 mmol/L (3.5-5.1)
[2018-05-04 01:07] LABS: Albumin Globulin Ratio 0.9 (0.9-2); Bilirubin,Total 0.4 mg/dl (0.2-1); Globulin 4.1 gm/dl (2.5-4.0); Total Protein 7.9 gm/dl (6.4-8.2)
[2018-05-04] MEDS ORDERED: ONDANSETRON HOME PACK 4MG OD TAB PO ONE (02:08)
[2018-05-04] MEDS ORDERED: OXYCODONE IR HOME PACK PO ONE (02:08)
[2018-05-04] MEDS ORDERED: HYDROmorphone INJ 0.5 MG/0.5 ML SYR IV PRN (02:47)
--- NOTE | 2018-05-04 03:37 | History & Physical Report ---
Date of Service May 04, 2018 Assessment & Plan (1) ARF (acute renal failure): Secondary to obstructive uropathy No sepsis for now GMF Baseline UA, monitor creatinine response to IVF Flomax trial, strain urine Urology consult RE left renal colic DVT prophylaxis. SCDs Full code History of Present Illness Chief Complaint: Left flank pain Primary Care Provider: Thierno Clarke History obtained from patient and records. No significant medical history. 2 days history of intermittent achy left flank discomfort going to the left abdomen, worse last night. No fever. Some chills. No hematuria. Urinary hesitancy symptoms. Good bowel movement. Intractable pain at the ER. Medical History as above Surgical History : section Family History : Kidney stones Personal/Social history : Non-smoker, occasional EtOH intake, restaurant employee Allergies Allergy/AdvReac Type Severity Reaction Status Date / Time codeine Allergy Mild Facial Verified 05/04/18 01:34 itching/swelling Home Medications Home Medications Medication Instructions Recorded Confirmed Type Control Med 1 tab PO DAILY 05/04/18 History ondansetron 4 mg PO Q6H PRN #12 tab 05/04/18 Rx oxycodone 5 - 10 mg PO Q6H #24 tab 05/04/18 Rx tamsulosin [Flomax] 0.4 mg PO DAILY #7 cap 05/04/18 Rx Past Med/Surg History Social History Current Living Situation: Spouse and Family Other Information That Helps Us Care for You: No Feels Safe at Home: No Is there a partner from a previous relationship who is making you feel unsafe now?: No Any Concerns about Your Family Situation: No Would You Like to Speak to Someone About Your Situation: No Safety Concerns: Feels Safe At This Time Smoking Status: Never smoker Second Hand Exposure: No Hx Alcohol Use: Yes Alcohol type: wine Alcohol Intake Frequency: a few times a month Hx Substance Use: No Beliefs That Will Affect Care: None Preferred Language: Chinese Communication Ability: Effective Supervisor Aircraft Maintenance Required: No Review of Systems As per HPI, all 10 systems reviewed, all other ROS negative Physical Exam 2 Vital Signs (Past 24 Hours): Last Vital Signs Temp 36.6 C 05/04/18 00:23 Pulse 73 05/04/18 02:54 Resp 24 05/04/18 02:54 BP 120/77 05/04/18 02:54 Pulse Ox 98 05/04/18 02:54 Physical Exam: GENERAL: slightly uncomfortable, no respiratory distress SKIN: Normal color, warm HEENT: [place] palpebral conjunctivae, no ptosis, dry buccal mucosa NECK : Supple, no tenderness CHEST : CTA, no tenderness HEART : RRR, no obvious murmurs ABDOMEN: Some distention, minimal left-sided abdominal tenderness EXTREMITIES : No LE swelling/tenderness, no other conspicuous deformities noted NEUROLOGIC : Coherent, no facial asymmetry, no other gross focality Results & Data Laboratory Results Laboratory Results WBC 9.96 K/uL (4.8-10.8) 05/04/18 00:35 RBC 5.04 M/uL (4.2-5.4) 05/04/18 00:35 Hgb 15.7 g/dL (12.0-16.0) 05/04/18 00:35 Hct 46.0 % (37-47) 05/04/18 00:35 MCV 91.3 fL (80-100) 05/04/18 00:35 MCH 31.2 pg (25-34) 05/04/18 00:35 MCHC 34.1 g/dL (32-36) 05/04/18 00:35 RDW Std Deviation 44.3 fL (36.4-46.3) 05/04/18 00:35 RDW Coeff of Ann-Marie 13.4 % (11.5-14.5) 05/04/18 00:35 Plt Count 379 K/uL (130-400) 05/04/18 00:35 MPV 10.1 fL (7.4-10.4) 05/04/18 00:35 Immature Gran % (Auto) 0.2 % 05/04/18 00:35 Neut % (Auto) 55.1 % 05/04/18 00:35 Lymph % (Auto) 35.4 % 05/04/18 00:35 [place] % (Auto) 7.2 % 05/04/18 00:35 Eos % (Auto) 1.5 % 05/04/18 00:35 Baso % (Auto) 0.6 % 05/04/18 00:35 Immature Gran # (Auto) 0.02 K/uL (0.00-0.02) 05/04/18 00:35 Neut # (Auto) 5.48 K/uL (1.4-6.5) 05/04/18 00:35 Lymph # (Auto) 3.53 K/uL (1.2-3.4) H 05/04/18 00:35 [place] # (Auto) 0.72 K/uL (0.11-0.59) H 05/04/18 00:35 Eos # (Auto) 0.15 K/uL (0-0.5) 05/04/18 00:35 Baso # (Auto) 0.06 K/uL (0-0.2) 05/04/18 00:35 Sodium 139 mmol/L (136-145) 05/04/18 00:35 Potassium 3.7 mmol/L (3.5-5.1) 05/04/18 00:35 Chloride 109 mmol/L (98-107) H 05/04/18 00:35 Carbon Dioxide 24 mmol/L (21-32) 05/04/18 00:35 Anion Gap 6.0 (3-11) 05/04/18 00:35 BUN 15 mg/dl (7-18) 05/04/18 00:35 Creatinine 1.33 mg/dl (0.6-1.2) H 05/04/18 00:35 Est Cr Clr Drug Dosing 50.7 ml/min 05/04/18 00:35 Est GFR ( Amer) 58.2 05/04/18 00:35 Est GFR (Non-Af Amer) 50.2 05/04/18 00:35 BUN/Creatinine Ratio 11.4 (10-20) 05/04/18 00:35 Glucose 86 mg/dl (70-99) 05/04/18 00:35 Calcium 8.1 mg/dl (8.5-10.1) L 05/04/18 00:35 Total Bilirubin 0.4 mg/dl (0.2-1) 05/04/18 00:35 AST 23 U/L (15-37) 05/04/18 00:35 ALT 29 U/L (12-78) 05/04/18 00:35 Alkaline Phosphatase 55 U/L (45-117) 05/04/18 00:35 Total Protein 7.9 gm/dl (6.4-8.2) 05/04/18 00:35 Albumin 3.8 gm/dl (3.4-5.0) 05/04/18 00:35 Globulin 4.1 gm/dl (2.5-4.0) H 05/04/18 00:35 Albumin/Globulin Ratio 0.9 (0.9-2) 05/04/18 00:35 Lipase 207 U/L (73-393) 05/04/18 00:[address] abdomen pelvis initial read obstructing 6 mm left UVJ junction stone with proximal hydroureteronephrosis. Moderate colonic stool burden.
[2018-05-04] MEDS ORDERED: OXYCODONE/ACETAMINOPHEN 5mg/325mg TAB PO PRN (04:26)
[2018-05-04] MEDS ORDERED: PROCHLORPERAZINE 5 MG in SYRINGE 4 ML IV PRN (04:26)
[2018-05-04] MEDS ORDERED: ACETAMINOPHEN 325 MG TAB PO PRN (04:26)
[2018-05-04] MEDS ORDERED: LORazepam 0.25 MG/0.5 ML VIAL IV PRN ×2 (04:26)
[2018-05-04 04:29] LABS: Appearance Urine Turbid (Clear); Color Urine Red; Protein Urine Negative (Negative); Specific Gravity Urine 1.035 (1.000-1.030)
[2018-05-04 04:34] LABS: Bacteria Urine Negative (Negative); Calcium Oxalate Crystals Urine Present (None Prsent); RBC Urine >30 /hpf (0-4); WBC Urine 0-5 /hpf (0-5)
[2018-05-04] MEDS: D5NSS + 20MEQ KCL 20 MEQ/1,000 ML BAG IV SCH ×2 (05:17→15:18)
[2018-05-04] MEDS: TAMSULOSIN HCL 0.4 MG CAP PO SCH (05:17)
--- NOTE | 2018-05-04 05:28 | Emergency Department Note ---
History of Present Illness General Chief complaint: Flank Pain Stated complaint: ABD PAIN Time Seen by Provider: 05/04/18 00:26 History of Present Illness Maximum Pain Intensity: 8 This is a 37-year-old female presenting to the emergency department with acute onset left flank pain that began approximately 30 minutes prior to arrival. The patient states the pain is a 10/10 and radiates into her left lower abdomen. The patient does not have injury or trauma to explain her symptoms. She feels like she needs to urinate, however she has not been able to. The patient is nauseated with the pain. She denies chance of . She does not have a history of appendectomy or cholecystectomy. The patient has not taken anything [id number] for her symptoms. Home Medications Home Medications Medication Instructions Recorded Confirmed Type Control Med 1 tab PO DAILY 05/04/18 History ondansetron 4 mg PO Q6H PRN #12 tab 05/04/18 Rx oxycodone 5 - 10 mg PO Q6H #24 tab 05/04/18 Rx tamsulosin [Flomax] 0.4 mg PO DAILY #7 cap 05/04/18 Rx Allergies Allergy/AdvReac Type Severity Reaction Status Date / Time codeine Allergy Mild Facial Verified 05/04/18 01:34 itching/swelling Past Med/Surg History Medical History No chronic diseases present Surgical History Hx of section (Resolved) Social History Current Living Situation: Spouse and Family Other Information That Helps Us Care for You: No Feels Safe at Home: No Is there a partner from a previous relationship who is making you feel unsafe now?: No Any Concerns about Your Family Situation: No Would You Like to Speak to Someone About Your Situation: No Safety Concerns: Feels Safe At This Time Smoking Status: Never smoker Second Hand Exposure: No Hx Alcohol Use: Yes Alcohol type: wine Alcohol Intake Frequency: a few times a month Hx Substance Use: No Beliefs That Will Affect Care: None Preferred Language: Ugandan Communication Ability: Effective Internet Merchant Required: No Review of Systems A total of 10 systems reviewed and were otherwise negative Physical Exam Vital Signs Vital Signs - 24 hr 05/04/18 00:23 05/04/18 02:54 05/04/18 04:12 Temperature 36.6 C Temperature Source Oral Sepsis Recent Fever Within 48 Hours No Sepsis Action Taken by Nursing No Action Required Pulse Rate 93 H 83 Pulse Rate [Right Finger] 73 Pulse Rhythm [Right Finger] Regular Pulse Strength [Right Finger] Normal Respiratory Rate 22 24 18 Respiratory Effort / Characteristics Respiratory Depth Normal Respiratory Pattern Blood Pressure 141/79 H 118/64 Blood Pressure [Left Arm] 120/77 Blood Pressure Mean 99 Blood Pressure Mean [Left Arm] 91 Blood Pressure Position Sitting Blood Pressure Position [Left Arm] Lying Pulse Oximetry 98 98 97 Oxygen Delivery Method Room Air Room Air Room Air 05/04/18 04:15 05/04/18 04:26 Temperature 36.9 C 36.9 C Temperature Source Oral Oral Sepsis Recent Fever Within 48 Hours Sepsis Action Taken by Nursing Pulse Rate Pulse Rate [Right Finger] 68 68 Pulse Rhythm [Right Finger] Regular Regular Pulse Strength [Right Finger] Normal Normal Respiratory Rate 18 18 Respiratory Effort / Characteristics Non-Labored Non-Labored Respiratory Depth Normal Normal Respiratory Pattern Regular Regular Blood Pressure Blood Pressure [Left Arm] 129/85 129/85 Blood Pressure Mean Blood Pressure Mean [Left Arm] 99 99 Blood Pressure Position Blood Pressure Position [Left Arm] Lying Lying Pulse Oximetry 96 96 Oxygen Delivery Method Room Air Room Air VITALS: Vitals are noted on the nurse's note and reviewed by myself. Vital signs stable. GENERAL: Well-developed, well-nourished, white female who appears in moderate to severe discomfort. She is bracing her left side flank with her left hand and pacing in the emergency department room. HEAD: Normocephalic atraumatic. EYES: Pupils equal round and reactive to light and accommodation. Conjunctivae without injection, sclerae without icterus. Extraocular movements intact. NOSE: Patent, turbinates without inflammation or discharge. MOUTH: Mucous membranes moist. Tonsils are not enlarged. Pharynx without erythema, blood, or exudate. Uvula midline. Airway patent. NECK: Supple without nuchal rigidity. No lymphadenopathy. No thyromegaly. Cervical spine is nontender. HEART: Regular rate and rhythm without murmurs gallops or rubs. LUNGS: Clear to auscultation bilaterally without wheezes, rales or rhonchi. No retractions or accessory muscle use. ABDOMEN: Positive normal bowel sounds x 4. Soft, nontender, without masses or organomegaly. No guarding or rebound tenderness. No CVA tenderness. MUSCULOSKELETAL: No muscle atrophy, erythema, or edema noted. Full range of motion in all extremities. NEURO: Patient was alert and oriented to person place and time. CN II through XII grossly intact. No focal neurological deficits. Deep tendon reflexes 2+ throughout. SKIN: The skin was without rashes, erythema, edema, or bruising. Capillary refill less than 2 seconds. Course Administered Medications Potassium Chloride/Dextrose/Sod Cl (D5nss + 20meq Kcl) 20 meq in 1,000 mls @ 100 mls/hr IV .Q10H CISCO Stop: 06/03/18 04:59 Last Admin: 05/04/18 05:17 Dose: 100 mls/hr Prochlorperazine 5 mg/ Syringe 5 mls @ 5 mls/min IV Q6H PRN PRN Reason: Nausea And Vomiting Stop: 06/03/18 04:25 Last Admin: 05/04/18 05:25 Dose: 5 mls/min Tamsulosin HCl (Flomax) 0.4 mg PO QAM CISCO Stop: 06/03/18 03:19 Last Admin: 05/04/18 05:17 Dose: 0.4 mg Discontinued Medications Hydromorphone HCl (Dilaudid) 0.5 mg IV Q15M PRN PRN Reason: pain Stop: 05/18/18 02:59 Last Admin: 05/04/18 02:53 Dose: 0.5 mg Sodium Chloride (Nss 1000ml) 1,000 mls @ 999 mls/hr IV .Q1H1M CISCO Stop: 05/04/18 01:30 Last Infusion: 05/04/18 01:47 Dose: 0 mls/hr Admin: 05/04/18 00:43 Dose: 999 mls/hr Ketorolac Tromethamine (Toradol) 15 mg IV NOW STA Stop: 05/04/18 00:30 Last Admin: 05/04/18 00:41 Dose: 15 mg Morphine Sulfate (Morphine Sulfate) 4 mg IV Q15M PRN PRN Reason: Pain Stop: 05/18/18 00:28 Last Admin: 05/04/18 02:34 Dose: 4 mg Admin: 05/04/18 00:42 Dose: 4 mg Ondansetron HCl (Zofran) 4 mg IV NOW STA Stop: 05/04/18 00:30 Last Admin: 05/04/18 00:41 Dose: 4 mg Ondansetron HCl (Zofran Odt 4mg Home Pack) 1 homepack PO NOW ONE Stop: 05/04/18 02:09 Last Admin: 05/04/18 02:35 Dose: Not Given Oxycodone HCl (Roxicodone Immediate Rel 5mg Home Pack) 1 homepack PO UD ONE Stop: 05/04/18 02:09 Last Admin: 05/04/18 02:35 Dose: Not Given Medical Decision Making Differential Diagnosis Differential diagnosis: Etiologies such as ureteral calculi, biliary colic, cholecystitis, hepatitis, pancreatitis, cardiac disease, pancreatitis, gastritis, peptic ulcer disease, appendicitis, cystitis, diverticulitis, mesenteric ischemia, inflammatory bowel disease, ileus, bowel obstruction, testicular/adnexal torsion, aortic pathology , shingles, as well as others were considered Laboratory Data Result diagrams: 05/04/18 00:35 05/04/18 00:35 Lab Results 05/04/18 05/04/18 05/04/18 Range/Units 00:35 00:35 04:10 WBC 9.96 (4.8-10.8) K/uL RBC 5.04 (4.2-5.4) M/uL Hgb 15.7 (12.0-16.0) g/dL Hct 46.0 (37-47) % MCV 91.3 (80-100) fL MCH 31.2 (25-34) pg MCHC 34.1 (32-36) g/dL RDW Std Deviation 44.3 (36.4-46.3) fL RDW Coeff of Ann-Marie 13.4 (11.5-14.5) % Plt Count 379 (130-400) K/uL MPV 10.1 (7.4-10.4) fL Immature Gran % (Auto) 0.2 % Neut % (Auto) 55.1 % Lymph % (Auto) 35.4 % [place] % (Auto) 7.2 % Eos % (Auto) 1.5 % Baso % (Auto) 0.6 % Immature Gran # (Auto) 0.02 (0.00-0.02) K/uL Neut # (Auto) 5.48 (1.4-6.5) K/uL Lymph # (Auto) 3.53 H (1.2-3.4) K/uL [place] # (Auto) 0.72 H (0.11-0.59) K/uL Eos # (Auto) 0.15 (0-0.5) K/uL Baso # (Auto) 0.06 (0-0.2) K/uL Sodium 139 (136-145) mmol/L Potassium 3.7 (3.5-5.1) mmol/L Chloride 109 H (98-107) mmol/L Carbon Dioxide 24 (21-32) mmol/L Anion Gap 6.0 (3-11) BUN 15 (7-18) mg/dl Creatinine 1.33 H (0.6-1.2) mg/dl Est Cr Clr Drug Dosing 50.7 ml/min Est GFR ( Amer) 58.2 Est GFR (Non-Af Amer) 50.2 BUN/Creatinine Ratio 11.4 (10-20) Glucose 86 (70-99) mg/dl Calcium 8.1 L (8.5-10.1) mg/dl Total Bilirubin 0.4 (0.2-1) mg/dl AST 23 (15-37) U/L ALT 29 (12-78) U/L Alkaline Phosphatase 55 (45-117) U/L Total Protein 7.9 (6.4-8.2) gm/dl Albumin 3.8 (3.4-5.0) gm/dl Globulin 4.1 H (2.5-4.0) gm/dl Albumin/Globulin Ratio 0.9 (0.9-2) Lipase 207 (73-393) U/L Urine Color Red Urine Appearance Turbid H (Clear) Urine pH (4.5-7.5) Ur Specific [place] 1.035 H (1.000-1.030) Urine Protein Negative (Negative) Urine Glucose (UA) (Negative) Urine Ketones (Negative) Urine Blood (Negative) Urine Nitrite (Negative) Urine Bilirubin (Negative) Urine Urobilinogen (Negative) Ur Leukocyte Esterase (Negative) Urine RBC >30 H (0-4) /hpf Urine WBC 0-5 (0-5) /hpf Ur Epithelial Cells 20-30 H (0-5) /lpf Calcium Oxalate Crystal Present H (None Prsent) Urine Bacteria Negative (Negative) Imaging Data Radiologist's Impression: Preliminary Findings Only � See Final Report For Complete Findings CT ABDOMEN & PELVIS Without Contrast: Impression: Obstructing 6 mm left ureterovesicular junction stone with proximal hydroureteronephrosis. Bilateral nonobstructing renal calculi. Moderate colonic stool burden. Recommend correlation for constipation. MDM Narrative Physical exam and history were performed. Nursing notes, EMR, and Medication List were personally reviewed. Patient appears to have left-sided flank pain that began acutely this evening. The patient appears in moderate to severe discomfort. IV access was established and labs were obtained. The patient was given morphine 4 mg through her IV as needed. She was given IV Toradol. She was hydrated with normal saline and given IV was sent to CT scan for further evaluation. The patient's blood work is as above and was reviewed. She does not have a significantly elevated white blood cell count or gross anemia. Her creatinine is mildly elevated at 1.33. She does not have a gross electrolyte imbalance otherwise. Urine was collected and is with gross blood but no obvious infection. CT scan was reviewed by myself and radiology and does reveal an obstructing 6 mm ureteral calculi. Clinically this does correlate with the patient's symptoms. On reevaluation the patient felt much more comfortable after analgesics. I discussed options of care with the patient and offered admission to the hospital versus discharge home. Utilizing shared decision making the patient voiced a desire to go home. Discharge paperwork was completed and prescriptions were sent to her pharmacy. While awaiting discharge, the patient had exacerbation of her pain. We did transition her to IV Dilaudid for pain control. At this time the patient does not appear well for discharge home. She has required multiple rounds of pain medication, and I did reopen the option of staying in the hospital versus going home. The patient feels that her pain will be poorly controlled at home, and I do agree. The case was discussed with the on-call [facility] hospitalist, who agreed to evaluate the patient here in the ER. Please see their dictation for further patient course, plan, and disposition. The chart was completed utilizing [employer] Speech Voice Recognition Software. Grammatical errors, random word insertions, pronoun errors, and incomplete sentences are an occasional consequence of this system due to software limitations, ambient noise, and hardware issues. Any formal questions or concerns about the content, text, or information contained within the body of this dictation should be directly addressed to the provider for clarification. . Impression & Plan Calculus of left ureter Discharge Plan Visit Data *Final* Discharge Date/Time: 05/04/18 04:12 Chief Complaint: Flank Pain Stated Complaint: ABD PAIN Other Complaint: Abdominal Pain ED Provider: Jorden Zendejas ED Midlevel Provider: Bakari Ureña Discharge Problem: Calculus of left ureter Patient Disposition: Home - Self-Care Condition: Good Discharge Instructions Interventions: ED Discharge Assessment Last Done: 05/04/18 04:12
[2018-05-04] MEDS ORDERED: CALCIUM GLUCONATE 10% 1,000 MG in SODIUM CHLORIDE 0.9% 50 ML IV ONE (06:15)
--- NOTE | 2018-05-04 06:49 | CT Scan Report ---
CT SCAN OF THE ABDOMEN AND PELVIS WITHOUT CONTRAST CLINICAL HISTORY: Left flank pain COMPARISON STUDY: No previous studies for comparison. TECHNIQUE: CT scan of the abdomen and pelvis was performed from the lung bases to the proximal femurs . Images are reviewed in the axial, sagittal, and coronal planes. IV contrast was not administered fo r this examination. A dose lowering technique was utilized adhering to the principles of ALARA. CT DOSE: 352.15 mGy.cm FINDINGS: Lower chest: The heart is normal in size and configuration, without pericardial effusion. The lung ba ses and pleural spaces are clear. Liver: The unenhanced liver is normal in size, contour, and attenuation. There is no intrahepatic elena iary ductal dilatation. Gallbladder: Unremarkable. Spleen: Normal in size and attenuation. Pancreas: Unremarkable. Adrenal glands: Unremarkable. Kidneys: There is a punctate nonobstructing right renal calculus. At least 5 left renal calculi are v isualized the largest of which measures 7 mm. Lower pole calculi could be located within a calyceal d iverticulum. There is mild left-sided hydronephrosis and mild perinephric stranding. There is mild le ft ureteral dilatation. There is a 5 mm left UVJ calculus. Bowel: There are no transition zones indicate bowel obstruction. There is no evidence of acute divert iculitis. There are no findings to indicate acute appendicitis. Peritoneum: There is no intraperitoneal free air or abdominal ascites. Vasculature: The abdominal aorta is normal in course and caliber. Adenopathy: None. Pelvic viscera: The bladder, and pelvic viscera are unremarkable. Skeletal structures: No destructive osseous lesions are seen. IMPRESSION: 1. Bilateral nephrolithiasis 2. Obstructing 5 mm left UVJ calculus Electronically signed by: Librado Hernandez M.D. 05/04/2018 6:47 AM
[2018-05-04 07:04] LABS: Pregnancy Test, Serum Negative (Negative)
[2018-05-04] MEDS ORDERED: ONDANSETRON INJ 2 MG/ML 2 ML VIAL IV PRN (07:36)
[2018-05-04] MEDS ORDERED: ACETAMINOPHEN 1,000 MG/100 ML VIAL IV PRN (07:42)
--- NOTE | 2018-05-04 10:09 | Urology Progress Note ---
Date of Service May 04, 2018 Assessment & Plan (1) Calculus of left ureter: A/P 37 yo female with L 6 mm UVJ stone with renal insufficiency and intractable colic. Findings reviewed with patient. She currently is asymptomatic, feels improved. The presence of larger L renal stones is also reviewed. She is offered intervention to extract her stone today to avoid recurrent colic - patient anxious about proceeding to the OR. Not unreasonable to attempt to pass her stone - will provide a diet for today, obtain KUB now and in AM to evaluate progress and radioopacity of stone, make NPO after midnight. If her symptoms are controlled should be OK to DC home tomorrow with short term outpatient follow-up with our service +/- outpatient ESWL if stone persists. Patient agrees , vocalizes understanding of the treatment plan. F/u labwork to ensure improvement in renal function with IV hydration. Thank you for allowing us to participate in this patient's care. Please contact our service with any other questions or concerns. (2) ARF (acute renal failure): Subjective Pleasant 37 yo female admitted early this AM due to intractable LLQ pain due to a 5-6 mm left UVJ stone associated with hydro and Cr of 1.33. Patient notes this is her first stone episode. She notes pain started 2 days ago, irritative voiding and SP pressure, felt like UTI, her last UTI being 2 years ago during . Her pain resolved but returned the following night, worse, prompting visit to ER. CT scan images personally reviewed - mild to mod L hydro, L renal stones, larger in size and burden. She notes her pain again resolved shortly after arriving in her room last night. This was associated with emesis and nausea. She is anxious about the possible return of her pain but feels fine now. She has passed no stones as of yet, order to strain urine noted. is consulted for assistance in her inpatient care. Constitutional: no fever and no chills Ear, Nose, Mouth, Throat: no ear pain Respiratory: no cough and no hemoptysis Cardiovascular: no chest pain Gastrointestinal: + abdominal pain, + nausea and + vomiting Genitourinary (Female): + flank pain Integumentary: no acne and no boil Neurologic: no paralysis and no numbness Psychiatric: no hopelessness Endocrine: + fatigue Hematologic / Lymphatic: no easy bleeding and no lymphadenopathy Physical Exam 2 Vital Signs (Past 24 Hours): Last Vital Signs Temp 36.9 C 05/04/18 04:26 Pulse 68 05/04/18 04:26 Resp 18 05/04/18 04:26 BP 129/85 05/04/18 04:26 Pulse Ox 96 05/04/18 04:26 Constitutional: WD/WN, vitals as above ENMT: Ears: no external ear abnormality Neck: trachea midline; no anterior neck swelling Respiratory: normal respiratory effort; no respiratory distress and does not use accessory muscles Cardiovascular: Vessels: radial pulses present Gastrointestinal (Abdomen): Percussion/Palpation: abdomen soft; no guarding Skin: normal turgor Neurologic: CN's II-XI intact bilaterally and awake; not obtunded Psychiatric: Orientation: oriented x 3 Lymphatic: no lymphadenopathy Results & Data Laboratory Results Laboratory Results - last 48 hr 05/04/18 05/04/18 05/04/18 00:35 00:35 00:35 WBC 9.96 RBC 5.04 Hgb 15.7 Hct 46.0 MCV 91.3 MCH 31.2 MCHC 34.1 RDW Std Deviation 44.3 RDW Coeff of Ann-Marie 13.4 Plt Count 379 MPV 10.1 Immature Gran % (Auto) 0.2 Neut % (Auto) 55.1 Lymph % (Auto) 35.4 [place] % (Auto) 7.2 Eos % (Auto) 1.5 Baso % (Auto) 0.6 Immature Gran # (Auto) 0.02 Neut # (Auto) 5.48 Lymph # (Auto) 3.53 H [place] # (Auto) 0.72 H Eos # (Auto) 0.15 Baso # (Auto) 0.06 Sodium 139 Potassium 3.7 Chloride 109 H Carbon Dioxide 24 Anion Gap 6.0 BUN 15 Creatinine 1.33 H Est Cr Clr Drug Dosing 50.7 Est GFR ( Amer) 58.2 Est GFR (Non-Af Amer) 50.2 BUN/Creatinine Ratio 11.4 Glucose 86 Calcium 8.1 L Total Bilirubin 0.4 AST 23 ALT 29 Alkaline Phosphatase 55 Total Protein 7.9 Albumin 3.8 Globulin 4.1 H Albumin/Globulin Ratio 0.9 Lipase 207 HCG, Qual Negative Urine Color Urine Appearance Urine pH Ur Specific [place] Urine Protein Urine Glucose (UA) Urine Ketones Urine Blood Urine Nitrite Urine Bilirubin Urine Urobilinogen Ur Leukocyte Esterase Urine RBC Urine WBC Ur Epithelial Cells Calcium Oxalate Crystal Urine Bacteria 05/04/18 04:10 WBC RBC Hgb Hct MCV MCH MCHC RDW Std Deviation RDW Coeff of Ann-Marie Plt Count MPV Immature Gran % (Auto) Neut % (Auto) Lymph % (Auto) [place] % (Auto) Eos % (Auto) Baso % (Auto) Immature Gran # (Auto) Neut # (Auto) Lymph # (Auto) [place] # (Auto) Eos # (Auto) Baso # (Auto) Sodium Potassium Chloride Carbon Dioxide Anion Gap BUN Creatinine Est Cr Clr Drug Dosing Est GFR ( Amer) Est GFR (Non-Af Amer) BUN/Creatinine Ratio Glucose Calcium Total Bilirubin AST ALT Alkaline Phosphatase Total Protein Albumin Globulin Albumin/Globulin Ratio Lipase HCG, Qual Urine Color Red Urine Appearance Turbid H Urine pH Ur Specific [place] 1.035 H Urine Protein Negative Urine Glucose (UA) Urine Ketones Urine Blood Urine Nitrite Urine Bilirubin Urine Urobilinogen Ur Leukocyte Esterase Urine RBC >30 H Urine WBC 0-5 Ur Epithelial Cells 20-30 H Calcium Oxalate Crystal Present H Urine Bacteria Negative
--- NOTE | 2018-05-04 10:18 | Urology Consultation ---
Date of Consultation May 04, 2018 Assessment & Plan (1) Calculus of left ureter: A/P 37 yo female with L 6 mm UVJ stone with renal insufficiency and intractable colic. Findings reviewed with patient. She currently is asymptomatic, feels improved. The presence of larger L renal stones is also reviewed. She is offered intervention to extract her stone today to avoid recurrent colic - patient anxious about proceeding to the OR. Not unreasonable to attempt to pass her stone - will provide a diet for today, obtain KUB now and in AM to evaluate progress and radioopacity of stone, make NPO after midnight. If her symptoms are controlled should be OK to DC home tomorrow with short term outpatient follow-up with our service +/- outpatient ESWL if stone persists. Patient agrees , vocalizes understanding of the treatment plan. F/u labwork to ensure improvement in renal function with IV hydration. Thank you for allowing us to participate in this patient's care. Please contact our service with any other questions or concerns. See urology progress note from today for further documentation. (2) ARF (acute renal failure): History of Present Illness Reason for Consultation: Left UVJ stone, hydro, colic, renal insufficiency Attending Physician: Eddie Colon MD History of Present Illness Pleasant 37 yo female admitted early this AM due to intractable LLQ pain due to a 5-6 mm left UVJ stone associated with hydro and Cr of 1.33. Patient notes this is her first stone episode. She notes pain started 2 days ago, irritative voiding and SP pressure, felt like UTI, her last UTI being 2 years ago during . Her pain resolved but returned the following night, worse, prompting visit to ER. CT scan images personally reviewed - mild to mod L hydro, L renal stones, larger in size and burden. She notes her pain again resolved shortly after arriving in her room last night. This was associated with emesis and nausea. She is anxious about the possible return of her pain but feels fine now. She has passed no stones as of yet, order to strain urine noted. is consulted for assistance in her inpatient care. Allergies Allergy/AdvReac Type Severity Reaction Status Date / Time codeine Allergy Mild Facial Verified 05/04/18 01:34 itching/swelling Home Medications Home Medications Medication Instructions Recorded Confirmed Type Control Med 1 tab PO DAILY 05/04/18 History ondansetron 4 mg PO Q6H PRN #12 tab 05/04/18 Rx oxycodone 5 - 10 mg PO Q6H #24 tab 05/04/18 Rx tamsulosin [Flomax] 0.4 mg PO DAILY #7 cap 05/04/18 Rx Patient History Medical History Nephrolithiasis No chronic diseases present Renal insufficiency Surgical History Hx of section (Resolved) Social History Current Living Situation: Spouse and Family Other Information That Helps Us Care for You: No Feels Safe at Home: No Is there a partner from a previous relationship who is making you feel unsafe now?: No Any Concerns about Your Family Situation: No Would You Like to Speak to Someone About Your Situation: No Safety Concerns: Feels Safe At This Time Smoking Status: Never smoker Second Hand Exposure: No Hx Alcohol Use: Yes Alcohol type: wine Alcohol Intake Frequency: a few times a month Hx Substance Use: No Beliefs That Will Affect Care: None Preferred Language: Arabic Communication Ability: Effective Bucket Pusher Required: No Review of Systems Constitutional: no fever and no chills Ear, Nose, Mouth, Throat: no ear pain Respiratory: no cough and no hemoptysis Cardiovascular: no chest pain Gastrointestinal: + abdominal pain, + nausea and + vomiting Genitourinary (Female): + flank pain Integumentary: no acne and no boil Neurologic: no paralysis and no numbness Psychiatric: no hopelessness Endocrine: + fatigue Hematologic / Lymphatic: no easy bleeding and no lymphadenopathy Physical Exam 2 Vital Signs (Past 24 Hours): Last Vital Signs Temp 36.9 C 05/04/18 04:26 Pulse 68 05/04/18 04:26 Resp 18 05/04/18 04:26 BP 129/85 05/04/18 04:26 Pulse Ox 96 05/04/18 04:26 Constitutional: WD/WN, vitals as above ENMT: Ears: no external ear abnormality Neck: trachea midline; no anterior neck swelling Respiratory: normal respiratory effort; no respiratory distress and does not use accessory muscles Cardiovascular: Vessels: radial pulses present Gastrointestinal (Abdomen): Percussion/Palpation: abdomen soft; no guarding Skin: normal turgor Neurologic: CN's II-XI intact bilaterally and awake; not obtunded Psychiatric: Orientation: oriented x 3 Lymphatic: no lymphadenopathy
[2018-05-04 16:09] LABS: Pregnancy Test, Urine Negative (Negative)
--- NOTE | 2018-05-04 17:57 | Hospitalist Progress Note ---
Date of Service May 04, 2018 Assessment & Plan (1) ARF (acute renal failure): OMER Obstructive uropathy Left Ureteral Caliculi CT ABD: Bilateral nephrolithiasis. Obstructing 5 mm left UVJ calculus Continue IV fluids, flomax Pain control Check KUB in AM NPO after midnight Appreciate Urology Input DVT Px: SCDs Code Status Full code Subjective Patient is seen and examined at bedside Complains of left flank pain radiating to groin Has nausea earlier today Denies chest pain, SOB, dizziness Offers no other complaints Physical Exam 2 Vital Signs (Past 24 Hours): Last Vital Signs Temp 36.7 C 05/04/18 15:04 Pulse 69 05/04/18 15:04 Resp 16 05/04/18 15:04 BP 113/68 05/04/18 15:04 Pulse Ox 97 05/04/18 15:04 Physical Exam: Physical Exam: Vitals signs as noted above General Appearance:Moderately built and nourished, no apparent distress Head: normocephalic, Atraumatic Eyes: normal inspection, EOMI Neck: supple, Trachea midline Respiratory/Chest: Normal breath sounds, CTA Cardiovascular: S1, S2, No murmur Abdomen/GI:Soft, Left flank tender, Bowel sounds present Extremities/Musculoskelatal:normal inspection, no edema Neurologic/Psych:AAOX3, grossly no focal neurological deficits Skin: normal color, warm Results & Data Laboratory Results Short CBC 05/04/18 Range/Units 00:35 WBC 9.96 (4.8-10.8) K/uL Hgb 15.7 (12.0-16.0) g/dL Hct 46.0 (37-47) % Plt Count 379 (130-400) K/uL BMP 05/04/18 00:35 Sodium 139 Potassium 3.7 Chloride 109 H Carbon Dioxide 24 BUN 15 Creatinine 1.33 H Glucose 86 Calcium 8.1 L Liver Function 05/04/18 Range/Units 00:35 Total Bilirubin 0.4 (0.2-1) mg/dl AST 23 (15-37) U/L ALT 29 (12-78) U/L Alkaline Phosphatase 55 (45-117) U/L Albumin 3.8 (3.4-5.0) gm/dl Urine 05/04/18 Range/Units 04:10 Urine Color Red Urine Appearance Turbid H (Clear) Urine pH (4.5-7.5) Ur Specific [place] 1.035 H (1.000-1.030) Urine Protein Negative (Negative) Urine Glucose (UA) (Negative)
[2018-05-04] MEDS: HYDROmorphone INJ 0.5 MG/0.5 ML SYR IV PRN (19:55)
[2018-05-05] MEDS: D5NSS + 20MEQ KCL 20 MEQ/1,000 ML BAG IV SCH (00:42)
[2018-05-05 06:35] LABS: Hematocrit (blood only) 38.3 % (37-47); Hemoglobin 12.5 g/dL (12.0-16.0); Mean Corpuscular Hgb Conc 32.6 g/dL (32-36); Mean Platelet Volume 10.4 fL (7.4-10.4); Platelet Count 279 K/uL (130-400); RDW Coefficient of Variation 13.8 % (11.5-14.5); Red Blood Count 4.12 M/uL (4.2-5.4)
[2018-05-05 07:03] LABS: BUN Creatinine Ratio 9.7 (10-20); Calcium 7.3 mg/dl (8.5-10.1); Creatinine Clr Calc Pharmacy 71.7 ml/min; Est GFR (African American) 88.6; Est GFR (Non-African American) 76.4
[2018-05-05] MEDS: HYDROmorphone INJ 0.5 MG/0.5 ML SYR IV PRN (07:36)
--- NOTE | 2018-05-05 08:22 | XRay Report ---
KUB HISTORY: Follow-up study in a patient with left-sided kidney stones Stone disease COMPARISON: CT abdomen and pelvis 05/04/2018 FINDINGS: The bowel gas pattern is non-obstructive. Mild to moderate formed stool noted throughout th e colon and rectum. There is no organomegaly. Left-sided nephrolithiasis redemonstrated including a 7 mm calculus within the region of the superior pole left kidney. The previously described calculus a bout the left ureterovesicular junction is not identified on today's study. No pneumoperitoneum or pn eumatosis. No fracture. IMPRESSION: 1. Unchanged left nephrolithiasis. 2. Previously described calculus of the distal left ureter within the region of the left ureterovesic ular junction is not identified on today's study. Electronically signed by: Osman Adames M.D. 05/05/2018 8:20 AM
[2018-05-05] MEDS: TAMSULOSIN HCL 0.4 MG CAP PO SCH ×2 (08:42→10:53)
--- NOTE | 2018-05-05 08:43 | Urology Progress Note ---
Date of Service May 05, 2018 Assessment & Plan (1) ARF (acute renal failure): (2) Calculus of left ureter: Afebrile, VSS Spontaneous passage of 5mm UVJ stone last evening - successfully in strainer- will send for analysis - KUB - confirms passage of offending stone. Cr improved with hydration from 1.33 to 0.94. Pain is controlled. Basic stone prevention strategies reviewed including lemonade therapy, increased hydration and avoiding salt. Will provide diet. Okay to discharge home from perspective. Encouraged to take OTC AZO as needed for mild dysuria, expect to improve over the next 1-2 days. UA on admission not suggestive of UTI. Will arrange f/u in 1-2 weeks as outpatient for tx of renal stone. Thank you for allowing us to participate in the care of Ms. Strickland. Subjective 37yo F admitted with 5mm L UVJ stone. stable ~7mm L renal stone. Pt successfully passed UVJ stone last evening, not visible on KUB this AM. Pt reports feeling better. Denies fevers/chills/n/v. Denies abdominal pain or suprapubic pain. States she is hungry. Having some dysuria with voiding, however much improved from pain with voiding prior to passing stone. Review of Systems All systems reviewed & are unremarkable except as noted in HPI & below Physical Exam 2 Vital Signs (Past 24 Hours): Last Vital Signs Temp 37.1 C 05/05/18 07:43 Pulse 70 05/05/18 07:43 Resp 18 05/05/18 07:43 BP 136/86 05/05/18 07:43 Pulse Ox 98 05/05/18 07:43 Physical Exam: A&Ox3 RRR abd soft, nontender on palpation bladder nondistended psych: good judgement, good eyecontact. Results & Data Laboratory Results Laboratory Results - last 48 hr 05/04/18 05/04/18 05/04/18 00:35 00:35 00:35 WBC 9.96 RBC 5.04 Hgb 15.7 Hct 46.0 MCV 91.3 MCH 31.2 MCHC 34.1 RDW Std Deviation 44.3 RDW Coeff of Ann-Marie 13.4 Plt Count 379 MPV 10.1 Immature Gran % (Auto) 0.2 Neut % (Auto) 55.1 Lymph % (Auto) 35.4 [place] % (Auto) 7.2 Eos % (Auto) 1.5 Baso % (Auto) 0.6 Immature Gran # (Auto) 0.02 Neut # (Auto) 5.48 Lymph # (Auto) 3.53 H [place] # (Auto) 0.72 H Eos # (Auto) 0.15 Baso # (Auto) 0.06 Sodium 139 Potassium 3.7 Chloride 109 H Carbon Dioxide 24 Anion Gap 6.0 BUN 15 Creatinine 1.33 H Est Cr Clr Drug Dosing 50.7 Est GFR ( Amer) 58.2 Est GFR (Non-Af Amer) 50.2 BUN/Creatinine Ratio 11.4 Glucose 86 Calcium 8.1 L Total Bilirubin 0.4 AST 23 ALT 29 Alkaline Phosphatase 55 Total Protein 7.9 Albumin 3.8 Globulin 4.1 H Albumin/Globulin Ratio 0.9 Lipase 207 HCG, Qual Negative Urine Color Urine Appearance Urine pH Ur Specific [place] Urine Protein Urine Glucose (UA) Urine Ketones Urine Blood Urine Nitrite Urine Bilirubin Urine Urobilinogen Ur Leukocyte Esterase Urine RBC Urine WBC Ur Epithelial Cells Calcium Oxalate Crystal Urine Bacteria Urine Test 05/04/18 05/04/18 05/05/18 04:10 04:10 06:05 WBC RBC Hgb Hct MCV MCH MCHC RDW Std Deviation RDW Coeff of Ann[place]Marie Plt Count MPV Immature Gran % (Auto) Neut % (Auto) Lymph % (Auto) [place] % (Auto) Eos % (Auto) Baso % (Auto) Immature Gran # (Auto) Neut # (Auto) Lymph # (Auto) [place] # (Auto) Eos # (Auto) Baso # (Auto) Sodium 141 Potassium 4.0 Chloride 113 H Carbon Dioxide 22 Anion Gap 6.0 BUN 9 D Creatinine 0.94 D Est Cr Clr Drug Dosing 71.7 Est GFR ( Amer) 88.6 Est GFR (Non-Af Amer) 76.4 BUN/Creatinine Ratio 9.7 L Glucose 107 H Calcium 7.3 L Total Bilirubin AST ALT Alkaline Phosphatase Total Protein Albumin Globulin Albumin/Globulin Ratio Lipase HCG, Qual Urine Color Red Urine Appearance Turbid H Urine pH Ur Specific [place] 1.035 H Urine Protein Negative Urine Glucose (UA) Urine Ketones Urine Blood Urine Nitrite Urine Bilirubin Urine Urobilinogen Ur Leukocyte Esterase Urine RBC >30 H Urine WBC 0-5 Ur Epithelial Cells 20-30 H Calcium Oxalate Crystal Present H Urine Bacteria Negative Urine Test Negative 05/05/18 06:05 WBC 6.60 RBC 4.12 L Hgb 12.5 D Hct 38.3 MCV 93.0 MCH 30.3 MCHC 32.6 RDW Std Deviation 47.0 H RDW Coeff of Ann-Marie 13.8 Plt Count 279 MPV 10.4 Immature Gran % (Auto) Neut % (Auto) Lymph % (Auto) [place] % (Auto) Eos % (Auto) Baso % (Auto) Immature Gran # (Auto) Neut # (Auto) Lymph # (Auto) [place] # (Auto) Eos # (Auto) Baso # (Auto) Sodium Potassium Chloride Carbon Dioxide Anion Gap BUN Creatinine Est Cr Clr Drug Dosing Est GFR ( Amer) Est GFR (Non-Af Amer) BUN/Creatinine Ratio Glucose Calcium Total Bilirubin AST ALT Alkaline Phosphatase Total Protein Albumin Globulin Albumin/Globulin Ratio Lipase HCG, Qual Urine Color Urine Appearance Urine pH Ur Specific [place] Urine Protein Urine Glucose (UA) Urine Ketones Urine Blood Urine Nitrite Urine Bilirubin Urine Urobilinogen Ur Leukocyte Esterase Urine RBC Urine WBC Ur Epithelial Cells Calcium Oxalate Crystal Urine Bacteria Urine Test
--- NOTE | 2018-05-05 11:39 | Hospitalist Progress Note ---
Date of Service May 05, 2018 Assessment & Plan (1) ARF (acute renal failure): OMER: Resolved Obstructive uropathy: Resolved Left Ureteral Caliculi CT ABD: Bilateral nephrolithiasis. Obstructing 5 mm left UVJ calculus Spontaneously passed the stone Stone analysis pending DC IV fluids Appreciate Urology Input Needs FU with Urology upon discharge DVT Px: SCDs Code Status Full code Subjective Patient is seen and examined at bedside Doing well today Spontaneously passed the stone last evening Denies flank pain, hematuria, nausea, chest pain, SOB, dizziness No complaints today Physical Exam 2 Vital Signs (Past 24 Hours): Last Vital Signs Temp 37 C 05/05/18 11:35 Pulse 67 05/05/18 11:35 Resp 18 05/05/18 11:35 BP 124/86 05/05/18 11:35 Pulse Ox 96 05/05/18 11:35 Physical Exam: Physical Exam: Vitals signs as noted above General Appearance:Moderately built and nourished, no apparent distress Head: normocephalic, Atraumatic Eyes: normal inspection, EOMI Neck: supple, Trachea midline Respiratory/Chest: Normal breath sounds, CTA Cardiovascular: S1, S2, No murmur Abdomen/GI:Soft, non tender, Bowel sounds present Extremities/Musculoskelatal:normal inspection, no edema Neurologic/Psych:AAOX3, grossly no focal neurological deficits Skin: normal color, warm Results & Data Laboratory Results Short CBC 05/05/18 Range/Units 06:05 WBC 6.60 (4.8-10.8) K/uL Hgb 12.5 D (12.0-16.0) g/dL Hct 38.3 (37-47) % Plt Count 279 (130-400) K/uL BMP 05/05/18 06:05 Sodium 141 Potassium 4.0 Chloride 113 H Carbon Dioxide 22 BUN 9 D Creatinine 0.94 D Glucose 107 H Calcium 7.3 L Diagnostic Findings KUB: 1. Unchanged left nephrolithiasis. 2. Previously described calculus of the distal left ureter within the region of the left ureterovesicular junction is not identified on today's study.
--- NOTE | 2018-05-05 11:49 | Discharge Summary ---
Date of Service May 05, 2018 Admission HPI Per Admitting Provider History obtained from patient and records. No significant medical history. 2 days history of intermittent achy left flank discomfort going to the left abdomen, worse last night. No fever. Some chills. No hematuria. Urinary hesitancy symptoms. Good bowel movement. Intractable pain at the ER. Medical History as above Surgical History : section Family History : Kidney stones Personal/Social history : Non-smoker, occasional EtOH intake, restaurant employee Admission Exam Per Admitting Provider GENERAL: slightly uncomfortable, no respiratory distress SKIN: Normal color, warm HEENT: New Post palpebral conjunctivae, no ptosis, dry buccal mucosa NECK : Supple, no tenderness CHEST : CTA, no tenderness HEART : RRR, no obvious murmurs ABDOMEN: Some distention, minimal left-sided abdominal tenderness EXTREMITIES : No LE swelling/tenderness, no other conspicuous deformities noted NEUROLOGIC : Coherent, no facial asymmetry, no other gross focality Principal Diagnosis Discharge Information Discharge Diagnosis Left Ureteral Caliculi OMER Nephrolithiasis Discharge Goals Decrease discomfort,Improve function,Improve disease control Discharge Activity Limitations Resume your previous activity Discharge Data Allergies Allergy/AdvReac Type Severity Reaction Status Date / Time codeine Allergy Mild Facial Verified 05/04/18 01:34 itching/swelling Consultations 05/04/18 02:35 ED Decision to Admit Stat 05/04/18 04:26 Consult Urology Routine Procedures Performed CT ABD: 1. Bilateral nephrolithiasis 2. Obstructing 5 mm left UVJ calculus Ordered Studies 05/04/18 00:29 CT abd pelvis wo con Stat Hospital Course (1) ARF (acute renal failure): OMER: Resolved Obstructive uropathy: Resolved Left Ureteral Caliculi CT ABD: Bilateral nephrolithiasis. Obstructing 5 mm left UVJ calculus Spontaneously passed the stone Stone analysis pending DC IV fluids Appreciate Urology Input Needs FU with Urology upon discharge DVT Px: SCDs Code Status Full code Total Time Total Time Spent Total Time Spent (In Minutes): 38 minutes Total Time Includes: Examination of the Patient, Discharge Planning, Medication Reconciliation, Communication With Other Providers and Other Discharge Plan Discharge Items Patient Disposition: Home - Self-Care Reason For Visit: OBSTRUCTIVE UROPATHY Discharge Diagnosis: Left Ureteral Caliculi OMER Nephrolithiasis Condition: Good Discharge Goals: Decrease discomfort, Improve disease control and Improve function Activity: Resume your previous activity Non-emergency contact: Primary Care Provider and Urologist Call non-emergency contact if: you have any medication questions, your symptoms worsen, your pain is not controlled, your pain is worsening, your pain is unusual for you, your pain is concerning for you and you have a fever Diet: Regular Addtl Provider Instructions: Follow up with your PCP on 04/28/18 at 1:45pm Follow up with your Urologist in 1-2 weeks Seek immediate medical attention if your symptoms reoccur or worsen Prescriptions: New phenazopyridine [Pyridium] 100 mg tablet 100 mg PO Q8H PRN (Reason: pain) Qty: 15 RF: 0 Continue Control Med 1 tab PO DAILY RF: 0 Discharge Orders: Discharge Order (Routine); Ordered 05/05/18 Ordered By: Eddie Colon Admission Data Admit Date/Time: 05/04/18 03:39 Attending Provider: Eddie Colon Admit Provider: Nakul Sepulveda Primary Care Provider: Thierno Clarke Other Providers: Thong Trivedi ; Tito Rodriguez ; Bill Peguero I. ; Melvin Pisano ; Qian Powers ; Eddie Woods II ; Janessa Butler ; Nakul Sepulveda Service: Surgical Services Other Interventions: Discharge Summary Assessment (RN) Last Done: 05/05/18 12:13 Pending Studies at Discharge: Yes Studies:: Renal Stone Analysis DC Date/Time DO NOT enter until pt leaves facility: 05/05/18 13:19
[2018-05-12 09:15] LABS: Component 2 DNR; Source Kidney
== END 2018-05-05 13:19 | disposition home or self-care (01) | DRG 683 ==
LOC: ED 00:20 → 3N 03:39